=== PATIENT | female | born 1935 | race Caucasian/White ===

== ENCOUNTER 2016-09-20 05:06 | Day surgery (SDC) | payer MEDICARE, BC ==
--- NOTE | ~2016-09-20 | OP ---
Record Of Operation [facility] [address] [place]. [address] NAME: EDMOND FISHER : 35 STATUS : REG [facility]#: [id number] AGE: 81 ADM/REG DATE : 09/20/16 MR#: [id number] REPORT SERV DATE: 09/20/16 DICTATED BY: BING GARZA DATE: 09/20/16 REPORT STATUS : Draft TRANSCRIBED BY: BRAYDEN DATE: 09/20/16 DATE OF PROCEDURE: 09/20/2016 PREPROCEDURE DIAGNOSIS: A 5-mm left renal calculus. POSTPROCEDURE DIAGNOSIS: A 5-mm left renal calculus. PROCEDURE: Left ESWL. GRAIN MANAGER: Samuel Goldberg. ANESTHESIA: MAC. HISTORY: Ms. Fisher is an 81-year-old white female with a symptomatic left renal calculus. We discussed treatment options, and she requested left ESWL. Risks, specific of this procedure to include, but not limited to bleeding, infection, incomplete stone fragmentation, steinstrasse, hematoma, injury to neighboring organs, need for further urologic procedures, anesthesia complications, and so forth. I answered all of her questions, I believe, to her satisfaction. Subsequently, she requested the procedure and provided an informed written consent. PROCEDURE IN DETAIL: On 09/20/2016, the patient was brought to the lithotripsy suite. She was placed supine on the [employer]ornier Compact Delta II lithotripter. Biplanar fluoroscopy was used to localize the left renal calculus. A time-out was called. The proper patient and procedure were confirmed. Levaquin was administered as a perioperative antibiotic. At this time, the Anesthesia team established monitored anesthesia care. Subsequently, we delivered a total of 2500 shocks at a maximum power rate of 4 and rate of 120 shocks per minute to the stone. Fluoroscopy time was 6 seconds. The patient tolerated the procedure well without immediate complications and was transferred to the recovery room in stable condition. EDMUND/BRAYDEN Bing Garza M.D. / [id number] CC: iNtin Gutiérrez M.D.
[~2016-09-20 05:06] MED LIST: CALTRA600D PO; CENTRUM PO; CENTRUM TAB1 TAB PO; CLIMARA0.05 MG TD; ESTRACE0.5 MG PO; FISH-EPA1000 MG PO; FLOMAX4 PO; MERIBIN5 MG OR; NORCO1 TA1 PO; PR12.5 PO; SYN.05 PO; XALAT OPH; [UNRECOGNIZED DRUG - OTHER]
[2016-09-20 06:06] LABS: BUN (BLOOD UREA NITROGEN) 12 MG/DL (6-23); CALCIUM, SERUM 9.3 MG/DL (8.5-10.4); CHLORIDE, SERUM 107 MMOL/L (96-112); CO2 (CARBON DIOXIDE) 31 MMOL/L (24-34); CREATININE 0.98 MG/DL (0.55-1.02); GFR AFRICAN AMERICAN 63 ML/MIN (>=60); GFR NON AFRICAN AMERICAN 54 ML/MIN (>=60); GLUCOSE, SERUM 103 MG/DL (60-99); POTASSIUM, SERUM 3.9 MMOL/L (3.5-5.3); SODIUM, SERUM 141 MMOL/L (135-148)
[2016-09-20 06:27] LABS: HEMOGLOBIN 13.9 g/dL (12.0-16.0)
[2016-09-20 06:28] LABS: HEMATOCRIT 42.5 % (36.0-48.0)
== END 2016-09-20 14:44 | disposition home or self-care (01) ==
LOC: SDC 05:06
PROVIDERS: Urology
PROC: 0TF4XZZ Fragmentation in Left Kidney Pelvis, External Approach (ICD-10-PCS; principal; 2016-09-20 07:00)
DX: N20.0 Calculus of kidney (principal); E03.9 Hypothyroidism, unspecified; H40.9 Unspecified glaucoma; M19.90 Unspecified osteoarthritis, unspecified site; Z79.899 Other long term (current) drug therapy; Z90.49 Acquired absence of other specified parts of digestive tract; Z90.710 Acquired absence of both cervix and uterus; Z98.41 Cataract extraction status, right eye; Z98.42 Cataract extraction status, left eye; Z98.890 Other specified postprocedural states; Z88.1 Allergy status to other antibiotic agents
CPT/HCPCS: 50590; 74000; 80048; 85014; 85018; 93005; A9270-GY; J3010